=== PATIENT | female | born 1935 | race Caucasian/White ===

== ENCOUNTER 2021-02-12 16:39 | Emergency (ER) | payer MEDICARE ==
[~2021-02-12] VITALS: Ht 157.5 cm; Wt 56.4 kg
[2021-02-12] MEDS ORDERED: FLOMAX0.4 MG PO (17:01)
[2021-02-12] MEDS ORDERED: CYCLOBENZAPRINE5 MG PO (17:02)
[2021-02-12] MEDS ORDERED: ELAVIL25 MG PO (17:02)
[2021-02-12] MEDS ORDERED: PROPRANOLOL HCL20 MG PO (17:03)
[2021-02-12] MEDS ORDERED: K-TAB10 MEQ PO (17:03)
[2021-02-12] MEDS ORDERED: LEVOXYL75 MCG PO (17:03)
[2021-02-12] MEDS ORDERED: HYDROCHLOROTH12.5 M1 PO (17:04)
[2021-02-12] MEDS ORDERED: ADVAIR (17:10)
[2021-02-12] MEDS ORDERED: LOW DOSE ASPIRI81 M1 PO (17:10)
[2021-02-12] MEDS ORDERED: FISH OIL 1,0001 CA1 PO (17:12)
[2021-02-12 17:14] VITALS: Ht 157.5 cm; Wt 56.4 kg
[2021-02-12 17:31] LABS: BASOPHILS 0.4 % (0-2); EOSINOPHILS 0.6 % (0-7); HEMATOCRIT 37.1 % (36.0-48.0); HEMOGLOBIN 12.1 g/dL (12-16); LYMPHOCYTES 10.6 % (15-50); MCH 27.9 pg (26.0-34.0); MCHC 32.7 g/dL (31.0-37.0); MCV 85.2 fL (80.0-100.0); MEAN PLATELET VOLUME 7.6 fL (7.4-10.4); MONOCYTES 2.5 % (2-11); NEUTROPHILS 85.9 % (40-80); PLATELET COUNT 230 10x3/uL (130-400); RBC 4.36 10x6/uL (4.00-5.40); WBC 10.4 10x3/uL (4.8-10.8)
[2021-02-12 17:37] LABS: ANION GAP 15.6 mmol/L (8-16); CALCIUM 9.7 mg/dL (8.5-10.1); CARBON DIOXIDE 25.7 mmol/L (21.0-32.0); CREATININE - SERUM 1.2 mg/dL (0.6-1.3); POTASSIUM - SERUM 3.3 mmol/L (3.5-5.1)
[2021-02-12 17:43] LABS: BILIRUBIN - TOTAL 0.4 mg/dL (0.2-1.3); PROTEIN - SERUM 7.8 g/dL (6.4-8.2)
[2021-02-12 18:08] LABS: BILIRUBIN NEGATIVE (NEGATIVE); KETONE 1+ mg/dL (< 1+); NITRITE NEGATIVE (NEGATIVE); UROBILINOGEN NORMAL mg/dL (< 2); WHITE CELLS - URINE 5 HPF (0-4)
[2021-02-12 18:09] LABS: BACTERIA FEW HPF (<MOD)
[2021-02-12 20:30] VITALS: BP 169/73
== END 2021-02-12 20:30 | disposition home or self-care (01) ==
LOC: D.ER 16:39
PROVIDERS: Emergency Medicine
DX: R55 Syncope and collapse (principal); R11.2 Nausea with vomiting, unspecified; J45.909 Unspecified asthma, uncomplicated; R42 Dizziness and giddiness